=== PATIENT | female | born 1975 | race Caucasian/White ===

== ENCOUNTER 2023-08-20 00:48 | Emergency (ER) | payer OTHER ==
[~2023-08-20] VITALS: Ht 165.1 cm; Wt 108.0 kg
[2023-08-20 00:50] VITALS: O2SAT 99
[2023-08-20 03:35] VITALS: BP 136/76; PULSE 82; RESP 14; TEMP 97.8
== END 2023-08-20 04:04 | disposition home or self-care (01) ==
LOC: ER 00:48
DX: T38.3X1A Poisoning by insulin and oral hypoglycemic [antidiabetic] drugs, accidental (unintentional), initial encounter (principal); Y92.9 Unspecified place or not applicable
CPT/HCPCS: 82962; 99283